=== PATIENT | male | born 1940 | race Caucasian/White ===

== ENCOUNTER 2020-06-24 08:49 | Emergency (ER) | payer MEDICARE, OTHER ==
[2020-06-24 09:02] VITALS: BP 159/94; PULSE 74; O2SAT 98
[2020-06-24] MEDS ORDERED: Rocephin 1000 MG INJ IM ONE (09:05)
[2020-06-24] MEDS ORDERED: solu-MEDROL 125 MG IM ONE (09:05)
[2020-06-24] MEDS ORDERED: solu-MEDROL 125 MG ONE (09:08)
[2020-06-24] MEDS ORDERED: Rocephin 1000 MG INJ ONE (09:09)
[2020-06-24] MEDS ORDERED: XYLOCAINE 1% HCL 20 ML MDV ONE (09:09)
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
== END 2020-06-24 09:33 | disposition home or self-care (01) ==
LOC: ED 08:49
DX: B02.21 Postherpetic geniculate ganglionitis (principal)
CPT/HCPCS: 96372; 99283; J0696; J2930

== ENCOUNTER 2020-11-05 18:47 | Emergency (ER) | payer MEDICARE, OTHER ==
[2020-11-05 19:11] VITALS: O2SAT 96
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
[2020-11-05 20:29] VITALS: BP 175/81; PULSE 75
[2020-11-05] MEDS ORDERED: BACIGUENT PACKET ONE (20:48)
[2020-11-05] MEDS ORDERED: BACIGUENT PACKET TP ONE (20:48)
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
== END 2020-11-05 20:51 | disposition home or self-care (01) ==
LOC: ED 18:47
DX: S50.811A Abrasion of right forearm, initial encounter (principal); V49.40XA Driver injured in collision with unspecified motor vehicles in traffic accident, initial encounter; Y93.9 Activity, unspecified; Z79.899 Other long term (current) drug therapy; S20.219A Contusion of unspecified front wall of thorax, initial encounter; I10 Essential (primary) hypertension; I25.810 Atherosclerosis of coronary artery bypass graft(s) without angina pectoris
CPT/HCPCS: 70450; 71250; 73090; 73110; 99283; A9270-GY

== ENCOUNTER 2024-07-25 21:20 | Emergency (ER) | payer MEDICARE, OTHER ==
[2024-07-25 21:42] VITALS: RESP 18; TEMP 98.8
--- NOTE | 2024-07-25 21:49 | ERPHSYRPT ---
- History of Present Illness Time Seen by Provider: 07/25/24 21:49 Source: patient Exam Limitations: no limitations Patient Subjective Stated Complaint: pt states he has been having cough, fever, and shortness of breath. states he feels like he has a lot of fluid making it hard for him to breathe Triage Nursing Assessment: pt alert and oriented, answers questions approp. pt ambulates to room with steady gait noted. respiraitons nonlabored, lungs with wheezing noted bilat. skin warm and dry Physician History: The patient, with aortic valve disease, presents with difficulty breathing and cough. He has been experiencing difficulty breathing and a cough that started yesterday, accompanied by fever, a 'mushy' mouth, a 'crackling' sensation, and a swollen tongue. He has thick, clear phlegm and finds it difficult to lie down due to breathing issues. He took some cough syrup around 7:30, which was difficult to swallow. He has a history of heart issues, specifically aortic valve disease, and has undergone open heart surgery. The aortic valve has not been repaired yet. He does not take Lasix or any other diuretics. He recently visited a walk-in clinic where he was tested for COVID-19 and other conditions, with results pending. He is concerned about the possibility of pneumonia due to his age. No use of oxygen at home. No chest pain, swelling, or belly pain. Timing/Duration: day(s) (2) Activities at Onset: rest Severity of Dyspnea-Max: severe Severity of Dyspnea-Current: severe Possible Cause: occasional episodes Modifying Factors: Improves With: oxygen. Worsens With: activity, coughing, deep breath, exertion, lying down Associated Symptoms: constant, cough, edema, wheezing, leg swelling, productive cough, No chest pain/discomfort, No heaviness Allergies/Adverse Reactions: No Known Drug Allergies Allergy (Verified 07/25/24 22:51) Home Medications: Amlodipine Besylate 2.5 mg PO DAILY 05/29/13 [History] Aspirin EC 81 mg [Ecotrin 81 mg] 81 mg PO DAILY 05/29/13 [History] Atorvastatin Calcium [Lipitor] 40 mg PO HS 05/29/13 [History] Clopidogrel Bisulfate [PLAVIX 75 MG Tablet] 75 mg PO DAILY 05/29/13 [History] Finasteride 5 mg [Proscar 5 MG] 5 mg PO HS 05/29/13 [History] Hctz/Triamterene 25/37.5 mg [Maxzide 25MG] 12.5 mg PO DAILY 05/29/13 [History] Lisinopril 20 mg [Zestril 20 MG] 20 mg PO DAILY 05/29/13 [History] Metoprolol Succinate 100 mg [Toprol Xl 100 MG] 50 mg PO DAILY 05/29/13 [History] Cholecalciferol (Vitamin D3) [Vitamin D3] 1,000 unit PO DAILY 11/05/20 [History] Lansoprazole [Prevacid] 15 mg PO DAILY 11/05/20 [History] Potassium Chloride [K-Dur] 10 meq PO DAILY 11/05/20 [History] Ranolazine 500 MG [Ranexa 500 MG] 500 mg PO BID 11/05/20 [History] Hx Tetanus, Diphtheria Vaccination/Date Given: Yes Hx Influenza Vaccination/Date Given: Yes Hx Pneumococcal Vaccination/Date Given: Yes Immunizations Up to Date: Yes Travel Risk - International Travel Have you traveled outside of the country in past 3 weeks: No - Emerging Infectious Disease Are you exhibiting symptoms associated with any current EIDs: Yes Symptoms: Cough: New Onset, Diarrhea, Fever, Shortness of Breath - Review of Systems All Other Systems: Reviewed and Negative - Past Medical History Pertinent Past Medical History: Yes (HTN, CAD) Cardiac History: Coronary Artery Disease, High Cholesterol, Hypertension Other Medical History: TRIPLE BYPASS,STENTS,HEART CATH - Past Surgical History Past Surgical History: Yes Cardiac: CABG Gastrointestinal: Cholecystectomy Other Surgical History: GALLBALDDER TRIPLE BYPASS COLONOSCOPY. HEART CATH, cochlear ear implant - Social History Smoking Status: Former smoker Exposure to second hand smoke: No Drug Use: none Patient Lives Alone: No - Social Determinants of Health Will the patient participate in the screening: Yes Do you worry about a steady place to live?: No Do you have any problems with any of the following?: No known problems, Oven/Stove not working In the past 12 months,have you had to go without utilities?: No Transportation Issues: No Has anyone in your support network made you feel unsafe?: No Have you or anyone in your house had to go without enough: No - Nursing Vital Signs Nursing Vital Signs: Initial Vital Signs Temperature 98.8 F 07/25/24 21:25 Pulse Rate 82 07/25/24 21:25 Respiratory Rate 18 07/25/24 21:25 Blood Pressure 155/79 07/25/24 21:25 O2 Sat by Pulse Oximetry 95 07/25/24 21:25 Pain Scale Pain Intensity 0 - Physical Exam General Appearance: mild distress Eye Exam: eyes nml inspection Ears, Nose, Throat Exam: hearing grossly normal Neck Exam: normal inspection, non-tender, supple, full range of motion Respiratory Exam: respiratory distress, airway intact, crackles/rales Cardiovascular/Chest Exam: normal heart sounds, regular rate/rhythm, edema Abdominal/Gastrointestinal Exam: soft, normal bowel sounds, No tenderness Neurologic Exam: alert, oriented x 3, cooperative Skin Exam: warm, dry, pale, No rash SpO2 Interpretation: borderline oxygenation SpO2: 93 O2 Delivery: Nasal Cannula - Course Nursing assessment & vital signs reviewed: Yes EKG Interpreted by Me: RATE (82), Sinus Rhythm, NORMAL AXIS, LAFB, Other ([place] 70, left atrial enlargement, LVH, anterior Q waves likely secondary to LVH) - CT Exams Chest CT Interpretation: Tele-radiologist Report (Multifocal peribronchovascular consolidation with surrounding ground-glass), Pneumonia Ordered Tests: Medication Summary Discontinued Medications Generic Name Dose Route Start Last Admin Trade Name Michelle PRN Reason Stop Dose Admin Aspirin 324 mg 07/25/24 23:29 07/26/24 00:26 Aspirin 81 Mg Tab.Chew PO 07/25/24 23:30 324 mg STAT ONE Administration Aspirin Confirm 07/26/24 00:25 Aspirin 81 Mg Tab.Chew Administered 07/26/24 00:26 Dose 324 mg .ROUTE .STK-MED ONE Clopidogrel Bisulfate 300 mg 07/25/24 23:29 07/26/24 00:26 Clopidogrel Bisulfate 75 Mg Tablet PO 07/25/24 23:30 300 mg STAT ONE Administration Clopidogrel Bisulfate Confirm 07/26/24 00:25 Clopidogrel Bisulfate 75 Mg Tablet Administered 07/26/24 00:26 Dose 300 mg .ROUTE .STK-MED ONE Enoxaparin Sodium 90 mg 07/25/24 23:30 07/26/24 00:26 Enoxaparin Sodium 120 Mg/0.8 Ml Syringe SQ 07/25/24 23:31 90 mg STAT STA Administration Enoxaparin Sodium Confirm 07/26/24 00:25 Enoxaparin Sodium 120 Mg/0.8 Ml Syringe Administered 07/26/24 00:26 Dose 120 mg SQ .STK-MED ONE Furosemide 40 mg 07/25/24 21:49 07/25/24 22:27 Furosemide 40 Mg/4 Ml Vial IV 07/25/24 21:50 40 mg STAT ONE Administration Furosemide Confirm 07/25/24 22:22 Furosemide 40 Mg/4 Ml Vial Administered 07/25/24 22:23 Dose 40 mg .ROUTE .STK-MED ONE Ceftriaxone Sodium 2 gm in 100 mls @ 200 mls/hr 07/25/24 21:49 07/25/24 23:15 Rocephin 2 Gm/100 Ml Nacl IV 07/25/24 22:18 Infused STAT ONE Infusion Azithromycin 500 mg in 250 mls @ 250 mls/hr 07/25/24 21:49 07/25/24 23:49 Zithromax 500 Mg/ 250 Ml Nacl Premix IV 07/25/24 22:48 Infused STAT STA Infusion Azithromycin Confirm 07/25/24 22:22 Zithromax 500 Mg/ 250 Ml Nacl Premix Administered 07/25/24 22:23 Dose 500 mg in 250 mls @ ud IV .STK-MED ONE Ceftriaxone Sodium Confirm 07/25/24 22:22 Rocephin 2 Gm/100 Ml Nacl Administered 07/25/24 22:23 Dose 2 gm in 100 mls @ ud IV .STK-MED ONE Lab/Rad Data: Laboratory Result Diagrams 07/25/24 22:16 07/25/24 22:16 Laboratory Results 07/26/24 07/25/24 07/25/24 Range/Units 02:05 22:25 22:18 WBC (4.23-9.07) x10^3/uL RBC (4.63-6.08) x10^6/uL Hgb (13.7-17.5) g/dL Hct (40.1-51.0) % MCV (79.0-92.2) fL MCH (25.7-32.2) pg MCHC (32.3-36.5) g/dL RDW (11.6-14.4) % Plt Count (163-337) x10^3/uL MPV (9.4-12.4) fL Gran % (34.0-67.9) % Immature Gran % (Auto) (0.001-0.429) % Nucleat RBC Rel Count (0.00-0.2) % Eos # (Auto) (0.04-0.54) x10^3/uL Immature Gran # (Auto) (0.001-0.031) x10^3u/L Absolute Lymphs (auto) (1.32-3.57) x10^3/uL Absolute Monos (auto) (0.30-0.82) x10^3/uL Absolute Nucleated RBC (0.00-0.012) x10^3u/L Lymphocytes % (21.8-53.1) % Monocytes % (5.3-12.2) % Eosinophils % (0.8-7.0) % Basophils % (0.2-1.2) % Absolute Granulocytes (1.78-5.38) x10^3/uL Basophils # (0.01-0.08) x10^3/uL Sodium (135-145) mmol/L Potassium (3.5-5.1) mmol/L Chloride (98-107) mmol/L Carbon Dioxide (22-30) mmol/L Anion Gap (5-15) MEQ/L BUN (9-20) mg/dL Creatinine (0.66-1.25) mg/dL Estimated GFR ML/MIN Glucose (74-106) mg/dL Lactic Acid 2.0 (0.4-2.0) Calcium (8.4-10.2) mg/dL Magnesium (1.6-2.3) mg/dL Total Bilirubin (0.2-1.3) mg/dL AST (17-59) U/L ALT (0-50) U/L Alkaline Phosphatase (38-126) U/L Troponin I 0.107 H* 0.034 H (0.000-0.033) ng/mL NT-Pro-B Natriuret Pep (<300) pg/mL Serum Total Protein (6.3-8.2) g/dL Albumin (3.5-5.0) g/dL Procalcitonin (0.030-0.080) ng/mL Influenza Type A Ag (NEGATIVE) Influenza Type B Ag (NEGATIVE) RSV (PCR) (NEGATIVE) SARS-CoV-2 (PCR) (NEGATIVE) 07/25/24 07/25/24 07/25/24 Range/Units 22:16 22:16 22:16 WBC 17.1 H (4.23-9.07) x10^3/uL RBC 4.67 (4.63-6.08) x10^6/uL Hgb 14.5 (13.7-17.5) g/dL Hct 41.6 (40.1-51.0) % MCV 89.1 (79.0-92.2) fL MCH 31.0 (25.7-32.2) pg MCHC 34.9 (32.3-36.5) g/dL RDW 12.9 (11.6-14.4) % Plt Count 219 (163-337) x10^3/uL MPV 10.9 (9.4-12.4) fL Gran % 85.1 H (34.0-67.9) % Immature Gran % (Auto) 0.4 (0.001-0.429) % Nucleat RBC Rel Count 0.0 (0.00-0.2) % Eos # (Auto) 0.13 (0.04-0.54) x10^3/uL Immature Gran # (Auto) 0.07 H (0.001-0.031) x10^3u/L Absolute Lymphs (auto) 1.40 (1.32-3.57) x10^3/uL Absolute Monos (auto) 0.91 H (0.30-0.82) x10^3/uL Absolute Nucleated RBC 0.00 (0.00-0.012) x10^3u/L Lymphocytes % 8.2 L (21.8-53.1) % Monocytes % 5.3 (5.3-12.2) % Eosinophils % 0.8 (0.8-7.0) % Basophils % 0.2 (0.2-1.2) % Absolute Granulocytes 14.55 H (1.78-5.38) x10^3/uL Basophils # 0.04 (0.01-0.08) x10^3/uL Sodium 131 L (135-145) mmol/L Potassium 3.5 (3.5-5.1) mmol/L Chloride 95 L (98-107) mmol/L Carbon Dioxide 29 (22-30) mmol/L Anion Gap 11.6 (5-15) MEQ/L BUN 19 (9-20) mg/dL Creatinine 0.85 (0.66-1.25) mg/dL Estimated GFR 86.2 ML/MIN Glucose 140 H (74-106) mg/dL Lactic Acid (0.4-2.0) Calcium 9.4 (8.4-10.2) mg/dL Magnesium 1.9 (1.6-2.3) mg/dL Total Bilirubin 1.00 (0.2-1.3) mg/dL AST 32 (17-59) U/L ALT 26 (0-50) U/L Alkaline Phosphatase 63 (38-126) U/L Troponin I (0.000-0.033) ng/mL NT-Pro-B Natriuret Pep 913 (<300) pg/mL Serum Total Protein 6.4 (6.3-8.2) g/dL Albumin 4.2 (3.5-5.0) g/dL Procalcitonin 1.010 H (0.030-0.080) ng/mL Influenza Type A Ag (NEGATIVE) Influenza Type B Ag (NEGATIVE) RSV (PCR) (NEGATIVE) SARS-CoV-2 (PCR) (NEGATIVE) 07/25/24 Range/Units 22:00 WBC (4.23-9.07) x10^3/uL RBC (4.63-6.08) x10^6/uL Hgb (13.7-17.5) g/dL Hct (40.1-51.0) % MCV (79.0-92.2) fL MCH (25.7-32.2) pg MCHC (32.3-36.5) g/dL RDW (11.6-14.4) % Plt Count (163-337) x10^3/uL MPV (9.4-12.4) fL Gran % (34.0-67.9) % Immature Gran % (Auto) (0.001-0.429) % Nucleat RBC Rel Count (0.00-0.2) % Eos # (Auto) (0.04-0.54) x10^3/uL Immature Gran # (Auto) (0.001-0.031) x10^3u/L Absolute Lymphs (auto) (1.32-3.57) x10^3/uL Absolute Monos (auto) (0.30-0.82) x10^3/uL Absolute Nucleated RBC (0.00-0.012) x10^3u/L Lymphocytes % (21.8-53.1) % Monocytes % (5.3-12.2) % Eosinophils % (0.8-7.0) % Basophils % (0.2-1.2) % Absolute Granulocytes (1.78-5.38) x10^3/uL Basophils # (0.01-0.08) x10^3/uL Sodium (135-145) mmol/L Potassium (3.5-5.1) mmol/L Chloride (98-107) mmol/L Carbon Dioxide (22-30) mmol/L Anion Gap (5-15) MEQ/L BUN (9-20) mg/dL Creatinine (0.66-1.25) mg/dL Estimated GFR ML/MIN Glucose (74-106) mg/dL Lactic Acid (0.4-2.0) Calcium (8.4-10.2) mg/dL Magnesium (1.6-2.3) mg/dL Total Bilirubin (0.2-1.3) mg/dL AST (17-59) U/L ALT (0-50) U/L Alkaline Phosphatase (38-126) U/L Troponin I (0.000-0.033) ng/mL NT-Pro-B Natriuret Pep (<300) pg/mL Serum Total Protein (6.3-8.2) g/dL Albumin (3.5-5.0) g/dL Procalcitonin (0.030-0.080) ng/mL Influenza Type A Ag NEGATIVE (NEGATIVE) Influenza Type B Ag NEGATIVE (NEGATIVE) RSV (PCR) NEGATIVE (NEGATIVE) SARS-CoV-2 (PCR) NEGATIVE (NEGATIVE) - Progress Progress: improved Air Movement: fair Progress Note: -Overall ill-appearing. Presented with shortness of breath and cough. Coarse breath sounds present bilaterally. CT chest concerning for pneumonia. Comorbidities and high risk features include aortic stenosis, CHF, hx of CABG. Given their presentation, history, and exam I think they will benefit from IV antibiotics and inpatient admission. Drawing cultures as well. Overall does seem septic. Currently stable on nasal cannula. No evidence of CHF exacerbation on labs today. Initial Troponin elevated, treated for NSTEMI with Plavix and Lovenox. EKG remains unchanged. Due to elevated Troponin will send out from out facility, no beds available at [facility] so we were finally able to get the patient accepted at [facility]. Discussed admission with hospitalist and they agree with the plan. The plan was also discussed with the patient. Blood Culture(s) Obtained: Yes Antibiotics given: Yes Will see patient in: hospital (full admit) Counseled pt/family regarding: lab results, diagnosis, need for follow-up, rad results Medical Desision Making - Diagnostic Testing Diagnostic test were ordered, analyzed, and reviewed by me: Yes Radiological Interpretation: Interpreted by me, Reviewed by me, Teleradiologist Report - Risk of complications The pt has a mod risk of morbidity or mortality based on: Need for prescription drug management The pt has a high risk of morbidity or mortality based on: Decision regarding hospitilization or escalation of hosp level of care - Departure Departure Disposition: Transfer ([facility]) Clinical Impression: NSTEMI (non-ST elevated myocardial infarction), SOB (shortness of breath), A cute hypoxic respiratory failure, Bilateral pneumonia, Thyroid nodule Condition: Stable Critical Care Time: No Referrals: LOIS HARO MD [Primary Care Provider] - Follow up/PCP as directed Instructions: Pneumonia, Adult (DC)
[2024-07-25 22:21] LABS: Absolute Neutrophil Ct (ANC) 14.55 x10^3/uL (1.78-5.38); BASOPHIL % 0.2 % (0.2-1.2); Basophil (Absolute #) 0.04 x10^3/uL (0.01-0.08); Eosinophil % 0.8 % (0.8-7.0); Eosinophil (Absolute #) 0.13 x10^3/uL (0.04-0.54); Hematocrit 41.6 % (40.1-51.0); Hemoglobin 14.5 g/dL (13.7-17.5); IMMATURE GRAN # 0.07 x10^3u/L (0.001-0.031); IMMATURE GRAN % 0.4 % (0.001-0.429); Lymphocytes % 8.2 % (21.8-53.1); Mean Cell Volume 89.1 fL (79.0-92.2); Mean Corpuscular Hgb Concent. 34.9 g/dL (32.3-36.5); Mean Platelet Volume 10.9 fL (9.4-12.4); Monocyte (Absolute #) 0.91 x10^3/uL (0.30-0.82); Monocytes % 5.3 % (5.3-12.2); Neutrophil % 85.1 % (34.0-67.9); Platelet Count 219 x10^3/uL (163-337); Red Blood Count 4.67 x10^6/uL (4.63-6.08); Red Cell Distribution Width 12.9 % (11.6-14.4); White Blood Count 17.1 x10^3/uL (4.23-9.07)
[2024-07-25] MEDS ORDERED: ROCEPHIN 2 GM/100 ML NACL 2 GM/100 ML IVPB IV ONE (22:22)
[2024-07-25] MEDS ORDERED: Zithromax 500 MG/ 250 ML NaCl Premix 500 MG/250 ML IVPB IV ONE (22:22)
[2024-07-25] MEDS ORDERED: Lasix 40 MG/4 ML ONE (22:22)
[2024-07-25] MEDS: Zithromax 500 MG/ 250 ML NaCl Premix 500 MG/250 ML IVPB IV STA (22:26)
[2024-07-25] MEDS: Lasix 40 MG/4 ML IV ONE (22:27)
[2024-07-25] MEDS: ROCEPHIN 2 GM/100 ML NACL 2 GM/100 ML IVPB IV ONE (22:27)
[2024-07-25 22:36] LABS: ALBUMIN 4.2 g/dL (3.5-5.0); ANION GAP 11.6 MEQ/L (5-15); Calcium 9.4 mg/dL (8.4-10.2); Creatinine 1 0.85 mg/dL (0.66-1.25); EST GLOMERULAR FILTRATION RATE 86.2 ML/MIN; MAGNESIUM 1.9 mg/dL (1.6-2.3); Potassium 3.5 mmol/L (3.5-5.1); Total Protein 6.4 g/dL (6.3-8.2)
[2024-07-25 22:53] LABS: PROCALCITONIN 1.01 ng/mL (0.030-0.080)
[2024-07-25 22:59] LABS: INFLUENZA A NEGATIVE (NEGATIVE); INFLUENZA B NEGATIVE (NEGATIVE); RESPIRATORY SYNCTIAL VIRUS NEGATIVE (NEGATIVE); SARS-CoV-2 Xpert Express NEGATIVE (NEGATIVE)
--- NOTE | 2024-07-25 23:17 | XRAY ---
CLINICAL HISTORY: sob COMPARISON: - TECHNIQUE: Contiguous axial images were obtained from the neck base through the upper abdomen without contrast. In addition, sagittal and coronal reconstructions were performed to potentially increase the sensitivity for the detection of disease. CT scan was performed according to ALARA (as low as reasonably achievable). FINDINGS: Multifocal peribronchovascular consolidation with surrounding ground-glass opacification noted in bilateral lung parenchyma predominantly in the lower lobes. Atelectatic bands noted in inferior lingula and medial segment of middle lobe. A 4 mm calcified granuloma noted in superior segment of right lower lobe. The rest of the lungs are clear. No other pulmonary nodules are seen. The central airways are patent. There are no pleural effusions.No pneumothorax is seen. Evaluation of the mediastinum and j carlos is limited due to the lack of intravenous contrast. Multiple small volume and a few enlarged lymph nodes noted in pretracheal, paratracheal, prevascular and bilateral hilar regions with few of them calcified. The largest lymph node measures 13 mm in short axis in subcarinal region. No axillary adenopathy is identified. Non-visualized left lobe of thyroid.Enlarged right lobe of thyroid with a hypodense area measuring 4 x 2.7 cm - suggested ultrasound correlation. The heart, aorta, and pulmonary arteries are of normal size and configuration. There are moderate appreciable coronary artery and aortic atherosclerotic calcifications. Coronary artery stents noted in situ. No pericardial effusion is identified. Post-cholecystectomy status.A well-defined hypodense cystic lesion noted in segment IVb, likely simple cyst - Suggested follow up if clinically indicated.A well-defined hypodense cystic lesions noted in mid pole of partially visualized left kidney, likely cyst. Mild bilateral perinephric fat stranding noted.Multiple punctate calcified granulomas noted in the spleen.The imaged portions of the rest of the upper abdominal viscera are unremarkable. No aggressive appearing osseous lesions are identified.Diffuse degenerative changes are seen in the visualized spine. Diffuse idiopathic skeletal hyperostosis noted. Sternotomy sutures noted in-situ. Note made of small left nodular gynecomastia. IMPRESSION: 1. Multifocal peribronchovascular consolidation with surrounding ground-glass opacification in bilateral lower lobes, suggestive of an infective etiology. 2. Mediastinal and hilar lymphadenopathy, likely reactive or granulomatous. 3. Enlarged right thyroid lobe with a hypodense lesion - recommend ultrasound correlation for further evaluation. 4. Small hepatic and left renal cyst. Electronically Signed by: Ruperto Powell MD. (07/25/2024 23:14:02 EST)
[2024-07-26] MEDS ORDERED: PLAVIX Tablet ONE (00:25)
[2024-07-26] MEDS ORDERED: ENOXAPARIN SODIUM SQ ONE (00:25)
[2024-07-26] MEDS ORDERED: BABY ASPIRIN 81 MG CHEW ONE (00:25)
[2024-07-26] MEDS: BABY ASPIRIN 81 MG CHEW PO ONE (00:26)
[2024-07-26] MEDS: PLAVIX Tablet PO ONE (00:26)
[2024-07-26] MEDS: ENOXAPARIN SODIUM SQ STA (00:26)
[2024-07-26 03:19] VITALS: BP 140/71; PULSE 85
[2024-08-04 21:22] VITALS: O2SAT 93
== END 2024-07-26 03:40 | disposition short-term general hospital (02) ==
LOC: ED 21:20
DX: I21.4 Non-ST elevation (NSTEMI) myocardial infarction (principal); J96.01 Acute respiratory failure with hypoxia; J18.9 Pneumonia, unspecified organism; E04.1 Nontoxic single thyroid nodule; Z79.899 Other long term (current) drug therapy; Z79.01 Long term (current) use of anticoagulants; Z86.79 Personal history of other diseases of the circulatory system
CPT/HCPCS: 0241U; 36415; 71250; 80053; 83605; 83735; 83880; 84145; 84484; 85025; 87040; 87077; 93005; 93041; 96365; 96367; 96372; 96374; 99285; J0456; J0696; J1650; J1940; A9270-GY